=== PATIENT | male | born 1970 | race Caucasian/White ===

== ENCOUNTER 2017-12-01 11:58 | Observation (INO) | payer OTHER ==
[~2017-12-01] VITALS: Ht 177.8 cm; Wt 121.1 kg
[2017-12-01 12:04] VITALS: Ht 177.8 cm; Wt 121.1 kg
[2017-12-01 12:22] LABS: microscopic required? NO
[2017-12-01 12:32] LABS: urine erythrocyte NEGATIVE (NEGATIVE)
[2017-12-01 12:34] LABS: BASOPHIL % 0.3 % (0-2); PLATELET COUNT 196 x10^3mcL (130-400); RED CELL DISTRIBUTION WIDTH 13.8 % (11.5-14.5)
[2017-12-01 12:40] LABS: CALCIUM 10.4 mg/dL (8.5-10.1); CARBON DIOXIDE 26.9 mmol/L (21-32); CHLORIDE SERUM 100 mmol/L (98-107); GFR1 > 60 mL/min; GLUCOSE SERUM 282 mg/dL (74-106); POTASSIUM SERUM 5.3 mmol/L (3.5-5.1); SODIUM SERUM 136 mmol/L (136-145)
[2017-12-01 12:45] LABS: ALBUMIN 4.4 g/dL (3.4-5.0); ALKALINE PHOSPHATASE 57 U/L (46-116); ALT/SGPT 125 U/L (16-63); AST/SGOT 47 U/L (15-37); BILIRUBIN TOTAL 0.7 mg/dL (0.20-1.00); CHOLESTEROL 195 mg/dL (<200); TOTAL PROTEIN, SERUM 8.1 g/dL (6.4-8.2)
[2017-12-01 12:47] LABS: CHOLESTEROL/HDL RATIO 6.5; HDL CHOLESTEROL 30 mg/dL (40-60); TRIGLYCERIDES 812 mg/dL (<150)
[2017-12-01] MEDS ORDERED: METFORMIN HCL1000 MG PO (13:42)
[2017-12-01] MEDS ORDERED: METOPROLOL SUCC50 M2 PO (13:42)
[2017-12-01] MEDS ORDERED: LISINOPRIL40 MG PO (13:43)
[2017-12-01] MEDS ORDERED: INVOKANA100 MG PO ×2 (13:43→20:40)
[2017-12-01] MEDS ORDERED: LANTUS SOLOS100 U/M1 (13:43)
[2017-12-01] MEDS ORDERED: GOOD SENSE OMEP20 MG PO (13:43)
[2017-12-01] MEDS ORDERED: AMLODIPINE BES2.5 M1 PO (13:44)
[2017-12-01 14:26] VITALS: BP 132/81
[2017-12-01 15:56] LABS: MAGNESIUM 2.2 mg/dL (1.8-2.4); PHOSPHOROUS 4.7 mg/dL (2.5-4.9)
[2017-12-01 16:05] LABS: T3 TOTAL 0.96 ng/mL
[2017-12-01 16:08] LABS: FREE T4 0.93 ng/dL (0.76-1.46); FREE THYROXINE INDEX 2.1 ug/dL (1.4-4.5); T4(THYROXINE) 6.6 ug/dL (4.7-13.3)
[2017-12-01 18:44] VITALS: BP 139/76
[2017-12-01 20:02] LABS: CALCIUM 9.4 mg/dL (8.5-10.1); CARBON DIOXIDE 23.8 mmol/L (21-32); CHLORIDE SERUM 101 mmol/L (98-107); CREATININE SERUM 1.1 mg/dL (0.7-1.3); GFR1 > 60 mL/min; GLUCOSE SERUM 287 mg/dL (74-106); SODIUM SERUM 136 mmol/L (136-145)
[2017-12-01 20:22] VITALS: BP 135/80
[2017-12-01] MEDS ORDERED: LANTUS SOLOS100 U/M1 SQ (20:40)
[2017-12-01] MEDS ORDERED: METOPROLOL SUC100 M2 PO (20:40)
[2017-12-02 04:59] VITALS: BP 136/71
[2017-12-02 06:06] LABS: BASOPHIL % 0.3 % (0-2); PLATELET COUNT 165 x10^3mcL (130-400); RED CELL DISTRIBUTION WIDTH 13.5 % (11.5-14.5)
[2017-12-02 06:44] LABS: CALCIUM 8.9 mg/dL (8.5-10.1); CHLORIDE SERUM 102 mmol/L (98-107); CREATININE SERUM 0.8 mg/dL (0.7-1.3); GFR1 > 60 mL/min; GLUCOSE SERUM 166 mg/dL (74-106); SODIUM SERUM 137 mmol/L (136-145)
[2017-12-02 08:28] VITALS: BP 139/79
[2017-12-02] MEDS ORDERED: LOP600 PO (09:23)
[2017-12-02] MEDS ORDERED: LIPI10 PO (09:24)
[2017-12-02] MEDS ORDERED: MAGL PO (09:45)
[2017-12-02 10:18] VITALS: BP 139/79
== END 2017-12-02 10:45 | disposition home or self-care (01) | DRG 390 ==
LOC: ED 11:58 → DU 13:43 → MU 13:43
PROVIDERS: Emergency Medicine; Family Medicine
DX: K56.41 Fecal impaction (principal); E11.65 Type 2 diabetes mellitus with hyperglycemia; E78.5 Hyperlipidemia, unspecified; K76.0 Fatty (change of) liver, not elsewhere classified; M47.896 Other spondylosis, lumbar region; K21.9 Gastro-esophageal reflux disease without esophagitis; E87.5 Hyperkalemia; Z79.84 Long term (current) use of oral hypoglycemic drugs; Z68.37 Body mass index [BMI] 37.0-37.9, adult
CPT/HCPCS: 82962; 83880; 84439; G0378; J1100; J1815; J1885; J2550; J7030; J8597; Q0092